=== PATIENT | male | born 1955 | race Caucasian/White ===

== ENCOUNTER 2020-12-29 09:59 | Outpatient (RCR) | payer MEDICARE ==
[2021-02-21] MEDS ORDERED: CETIRIZINE HCL10 MG PO (16:46)
[2021-02-21] MEDS ORDERED: PANTOPRAZOLE SO40 MG PO (16:47)
[2021-02-21] MEDS ORDERED: MIRTAZAPINE30 MG PO (16:47)
[2021-02-21] MEDS ORDERED: GABAPENTIN TAB600 MG PO (16:47)
[2021-02-21] MEDS ORDERED: ESZOPICLONE3 MG PO (16:48)
[2021-02-21] MEDS ORDERED: LOPRESSOR 225 MG/TAB PO (16:48)
[2021-02-21] MEDS ORDERED: DULOXETINE30 MG PO (16:48)
[2021-02-21] MEDS ORDERED: FLOMAX0.4 MG PO (16:49)
== END 2021-03-29 | disposition home or self-care (01) ==
LOC: PT
DX: M75.102 Unspecified rotator cuff tear or rupture of left shoulder, not specified as traumatic (principal); Z96.612 Presence of left artificial shoulder joint

== ENCOUNTER 2021-02-21 16:31 | Emergency (ER) | payer MEDICARE ==
[~2021-02-21] VITALS: Ht 175.3 cm; Wt 112.7 kg
[2021-02-21] MEDS ORDERED: CETIRIZINE HCL10 MG PO (16:46)
[2021-02-21] MEDS ORDERED: GABAPENTIN TAB600 MG PO (16:47)
[2021-02-21] MEDS ORDERED: PANTOPRAZOLE SO40 MG PO (16:47)
[2021-02-21] MEDS ORDERED: MIRTAZAPINE30 MG PO (16:47)
[2021-02-21] MEDS ORDERED: DULOXETINE30 MG PO (16:48)
[2021-02-21] MEDS ORDERED: LOPRESSOR 225 MG/TAB PO (16:48)
[2021-02-21] MEDS ORDERED: ESZOPICLONE3 MG PO (16:48)
[2021-02-21] MEDS ORDERED: FLOMAX0.4 MG PO (16:49)
[2021-02-21 17:30] LABS: BASO # 0.07 (0.02-0.10); EOS # 0.29 (0.04-0.40); EOS % 4.1 % (0.0-4.0); HEMATOCRIT 47.8 % (42.0-52.0); HEMOGLOBIN 15.6 g/dL (13.5-18.0); LYMPH# 1.62 (1.50-4.00); MEAN CELL VOLUME 88 fl (78-100); MEAN CORPUSCULAR HEMOGLOBIN 29 pg (27-31); MEAN CORPUSCULAR HGB CONC 33 g/dL (33-37); MEAN PLATELET VOLUME 11.5 fl (7.4-10.4); MONO # 0.64 (0.20-0.80); NEU # 4.37 (1.40-6.50); PLATELET COUNT 215 K/mm3 (130-400); RED BLOOD COUNT 5.43 M/mm3 (4.20-5.60); RED CELL DISTRIBUTION WIDTH 12.8 % (11.5-14.5)
[2021-02-21 17:32] LABS: ALBUMIN 4.1 g/dL (3.4-4.8); POTASSIUM 4.1 mmol/L (3.5-5.1); SODIUM 142 mmol/L (136-145)
[2021-02-21 17:34] LABS: GLUCOSE 108 mg/dL (75-110); TOTAL PROTEIN 7.5 g/dL (6.2-8.1)
[2021-02-21 17:35] LABS: CARBON DIOXIDE 23 mmol/L (23-31)
[2021-02-21 17:36] LABS: TOTAL BILIRUBIN 0.4 mg/dL (0.2-1.2)
[2021-02-21 17:40] LABS: AST-SGOT 35 U/L (5-34)
[2021-02-21 17:41] LABS: ALT/SGPT 50 U/L (0-55)
[2021-02-21 17:48] LABS: TROPONIN-I < 0.03 ng/mL (<0.030)
[2021-02-21 20:04] VITALS: BP 147/97
== END 2021-02-21 20:04 | disposition home or self-care (01) ==
LOC: ED 16:31
PROVIDERS: Family Medicine
DX: K21.9 Gastro-esophageal reflux disease without esophagitis (principal); I10 Essential (primary) hypertension; Z20.822 Contact with and (suspected) exposure to COVID-19; Z79.899 Other long term (current) drug therapy

== ENCOUNTER → 2022-04-16 | Outpatient (CLI) | payer MEDICARE ==
[~2022-04-16] MED LIST: CETIRIZINE HCL10 MG PO; DULOXETINE30 MG PO; ESZOPICLONE3 MG PO; FLOMAX0.4 MG PO; GABAPENTIN TAB600 MG PO; LOPRESSOR 225 MG/TAB PO; MIRTAZAPINE30 MG PO; PANTOPRAZOLE SO40 MG PO
[2022-04-16 08:16] LABS: BASO # 0.03 K/mm3 (0.02-0.10); EOS # 0.17 K/mm3 (0.04-0.40); EOS % 2.5 % (0.0-4.0); HEMATOCRIT 46.1 % (42.0-52.0); HEMOGLOBIN 15.3 g/dL (13.5-18.0); LYMPH# 0.82 K/mm3 (1.50-4.00); MEAN CELL VOLUME 86 fl (78-100); MEAN CORPUSCULAR HEMOGLOBIN 29 pg (27-31); MEAN CORPUSCULAR HGB CONC 33 g/dL (33-37); MEAN PLATELET VOLUME 10.9 fl (7.4-10.4); MONO # 0.58 K/mm3 (0.20-0.80); NEU # 5.09 K/mm3 (1.40-6.50); PLATELET COUNT 193 K/mm3 (130-400); RED BLOOD COUNT 5.34 M/mm3 (4.20-5.60); RED CELL DISTRIBUTION WIDTH 13.2 % (11.5-14.5); WHITE BLOOD COUNT 6.7 K/mm3 (4.8-10.8)
[2022-04-16 08:33] LABS: ALBUMIN 4.5 g/dL (3.4-4.8); POTASSIUM 4.2 mmol/L (3.5-5.1)
[2022-04-16 08:34] LABS: CALCIUM 10.1 mg/dL (8.3-10.5)
[2022-04-16 08:36] LABS: TOTAL PROTEIN 7.7 g/dL (6.2-8.1)
[2022-04-16 08:37] LABS: TOTAL BILIRUBIN 0.7 mg/dL (0.2-1.2)
== END ==
LOC: LAB 07:51
PROVIDERS: Internal Medicine
DX: Z00.00 Encounter for general adult medical examination without abnormal findings (principal); E78.2 Mixed hyperlipidemia

== ENCOUNTER 2022-07-12 08:57 | Outpatient (RCR) | payer MEDICARE | END 2022-07-13 | LOC: PT | DX: M75.101 Unspecified rotator cuff tear or rupture of right shoulder, not specified as traumatic (principal); M12.811 Other specific arthropathies, not elsewhere classified, right shoulder ==

== ENCOUNTER 2022-08-11 08:00 | Outpatient (RCR) | payer MEDICARE | END 2022-09-10 | disposition home or self-care (01) | LOC: PT | DX: M75.101 Unspecified rotator cuff tear or rupture of right shoulder, not specified as traumatic (principal); M12.811 Other specific arthropathies, not elsewhere classified, right shoulder ==